=== PATIENT | female | born 1965 | race Caucasian/White ===

== ENCOUNTER 2023-12-04 00:02 | Emergency (ER) | payer OTHER, SELFPAY ==
[2023-12-04 00:12] VITALS: BP 119/88
--- NOTE | 2023-12-04 01:32 | ED.SKININJ ---
HPI-Injury
General
Chief Complaint: Skin Problem
Source: patient and family
Exam Limitations: none
Time Seen by Provider: 12/04/23 01:08
Nursing documentation reviewed up to this point in time: agreed with
History of Present Illness-Injury
Initial Injury comments:
Pleasant 58-year-old female presents with right lower extremity swelling around varicose veins. She has had varicose
Past History
Past History
ED Past Medical History: Psychiatric (ADD) and Other (Chronic low back pain/lumbar disc disease)
ED Past Surgical History: and Other (Lumbar epidural steroid injection, lumbar facet joint injections November 2018; umbilical hernia repair)
Social History
Tobacco: Non-smoker
Alcohol: Occasional
Drug: None
Personal:
Living: with family
Employment: Employed (Teacher)
Family History
Family History: Other (Noncontributory)
Review of Systems
Review of Systems
Allergies reviewed?: Yes
Other source history: family
All Other Systems: ROS reviewed and negative except as documented in HPI and ROS
Constitutional: Reports no symptoms
EENT: Reports no symptoms
Respiratory: Reports no symptoms
Cardiac: Reports no symptoms
ABD/GI: Reports no symptoms
: Reports no symptoms
Musculoskeletal: Reports other (Some superficial swelling)
Skin: Reports no symptoms
Neurological: Reports no symptoms
Endocrine: Reports no symptoms
Hematologic/Lymphatic: Reports no symptoms
Psychiatric: Reports anxiety
Phy Exam
Physical Exam
Physical Exam:
Physical Exam
Vital signs and allergy list reviewed and agreed with.
GENERAL: Alert , in minimal apparent distress
EYE: pupils equal, EOMI, anicteric
NECK: Supple, no significant adenopathy. No masses. Trachea midline
CARDIAC: Regular rate and rhythm . No M/R/G
LUNGS: Clear breath sounds bilaterally, no acute respiratory distress, no wheezes/rales/rhonchi
NEUROLOGICAL: Alert and oriented, no focal neuro deficits
SKIN: Warm and dry, skin intact.
MUSCULOSKELETAL: No edema, well perfused. Moves all 4 extremities. Varicose veins on the right. Slight swelling.
PSYCH: Normal and appropriate interaction.
Course
Orders/Labs/Results
Orders:
Orders
12/04/23 01:32
US Periph Venous LOWER Ext RT Urgent
Comment:
Reason For Exam: new swelling right le near varicose vv
12/04/23 02:31
Ibuprofen [Motrin] 600 mg PO NOW STA
Vital Signs
Initial and Last Documented VS:
Initial Vital Signs
Temp Pulse Resp BP Pulse Ox
98.2 F 75 18 119/88 99
12/04/23 00:12 12/04/23 00:12 12/04/23 00:12 12/04/23 00:12 12/04/23 00:12
Last Documented Vital Signs
Temp Pulse Resp BP Pulse Ox
98.2 F 75 18 119/88 99
12/04/23 00:12 12/04/23 00:12 12/04/23 00:12 12/04/23 00:12 12/04/23 00:12
*Critical Care Note
Total Time (30-74mins, 75-104mins- exclusive of procedures): Not Applicable
Update Note
Update Note:
Ultrasound is negative for DVT
ED Attending Note
-
Portions of this chart may have been created with voice recognition software.� Occasional wrong word or��sound alike� substitutions may have occurred due to the inherent limitations of voice recognition software.
Discharge Plan
Departure
Patient Disposition: Home (Routine Discharge)
Date of Disposition: 12/04/23
Time of Disposition: 02:29
Patient with high blood pressure during this ER visit?: No
Discharge Problem:
Varicose veins
Instructions: Varicose Veins (DC)
Prescriptions:
New
diclofenac sodium 75 mg tablet,delayed release (DR/EC)
75 mg PO BID Qty: 10 0RF
No Action
multivitamin 1 EACH tablet
1 ea PO DAILY
dextroamphetamine-amphetamine [Adderall XR] 20 MG capsule,extended release 24hr
20 mg PO DAILY
Referrals:
Joseph Devries MD [Active] - Call in 1-3 days for appt
Activity Restrictions/Additional Instructions:
It was a pleasure meeting you and taking part in your care. We hope for your continued healing and wellness.
Please read discharge instructions in their entirety. However, they are for general education and may not describe your exact diagnosis at discharge. Information on your ER visit and medical conditions were discussed with you along with appropriate
follow up information...
If indicated, please take your medications as instructed and indicated on discharge paperwork.
Please schedule a follow up appointment as directed. Call to schedule an appointment
Please return to the emergency department with ANY change in, persisting, or worsening of symptoms. If any of your symptoms do not improve, or persist, or become more severe within 6-12 hours, please return to the emergency department for further
care.
Please return to the emergency department if you develop a headache, neck pain/stiffness, fever greater than 100.4F, chest pain, shortness of breath, persistent nausea, vomiting, slurred speech, difficulty walking, numbness/tingling, weakness, signs
of infection or any other symptoms that are worrisome to you.
If you have any questions or concerns please do not hesitate to call the Hospital at or E-mail me directly at [email or web address]
Interventions
Interventions:
*Risk Screen - Suicide Last Done: 12/04/23 01:53
*General Assessment Last Done: 12/04/23 01:53
*Neglect/Abuse Screening Last Done: 12/04/23 01:53
ED- Fall Risk Assessment Last Done: 12/04/23 01:53
*ED COVID-19 Vaccine History Last Done: 12/04/23 01:53
*Nursing Disposition Last Done: 12/04/23 02:38
ED-Skin Assessment Last Done: 12/04/23 01:53
Discharge Date and Time
Discharge Date/Time: 12/04/23 02:38
Print Language: [id number]
[2023-12-04] MEDS: MOTRIN 600 MG PO (02:35)
== END 2023-12-04 02:38 | disposition home or self-care (01) ==
LOC: EMR 00:02
PROVIDERS: EMERGENCY PHYSICIAN Student in an Organized Health Care Education/Training Program; FAMILY PHYSICIAN Family Medicine
DX: I83.891 Varicose veins of right lower extremity with other complications (principal); M51.26 Other intervertebral disc displacement, lumbar region; M54.50 Low back pain, unspecified; G89.29 Other chronic pain; F90.9 Attention-deficit hyperactivity disorder, unspecified type
CPT/HCPCS: 99284; 93971